=== PATIENT | male | born 1990 | race Caucasian/White ===

== ENCOUNTER 2019-07-24 01:25 | Emergency (ER) | payer SELFPAY ==
[~2019-07-24] VITALS: Ht 175.3 cm; Wt 89.4 kg
[~2019-07-24 01:25] MED LIST: CLIN150C2 PO
[2019-07-24 01:35] VITALS: BP 133/84
[2019-07-24] MEDS ORDERED: KETOROLAC 60 MG/2 ML VIAL IM STA (01:53)
[2019-07-24] MEDS ORDERED: AMOXICILLIN 500 MG (POLYMOX) CAP PO STA (01:53)
[2019-07-24] MEDS ORDERED: HYDROcodone/APAP 5 MG/325 MG (LORTAB) TAB PO ONE (02:00)
[2019-07-24] MEDS ORDERED: LIDOCAINE 2% VISCOUS 15 ML UDC PO ONE (02:00)
--- NOTE | 2019-07-24 02:04 | ED EENT ---
History of Present Illness General Chief Complaint: Dental Problems/Pain Stated Complaint: DENTAL PAIN Nursing Triage Note: left lower rear dental pain. reports breaking tooth friday. Source: patient Exam Limitations: no limitations History of Present Illness Date Seen by Provider: Jul 24, 2019 Time Seen by Provider: 01:44 Initial Comments Here with complaint of dental pain due to cracked tooth in the lower posterior left. Has poor dentition overall and knows he needs to get all his teeth pulled and get dentures but does not have insurance and can't afford to get it done right now. States that tooth broke few days ago. He has tried [id number] measures but he is unable to sleep due to severe pain. Has rather significant dental disease overall and every tooth is affected. Timing/Duration: other (2-3 days ago) Severity: moderate Location: mouth, dental Prearrival Treatment: over the counter meds Associated Symptoms: No cough, No drooling, No facial pain/swelling, No fever, No sore throat; tooth pain; No voice change Allergies and Home Medications Allergies Coded Allergies: levofloxacin (Verified Allergy, Unknown, 07/24/19) Home Medications No Active Prescriptions or Reported Meds Patient Home Medication List Home Medication List Reviewed: Yes Review of Systems Review of Systems Constitutional: no symptoms reported Eyes: No Symptoms Reported Ears: No Symptoms Reported Nose: no symptoms reported Mouth: see HPI, loose teeth, pain Throat: no symptoms reported Respiratory: no symptoms reported Cardiovascular: no symptoms reported Gastrointestinal: no symptoms reported Past Suvfrii-Kbjnry-Zlzizp Hx Past Med/Social Hx: Reviewed Nursing Past Med/Soc Hx Patient Social History Alcohol Use: Occasionally Uses Recreational Drug Use: Yes Drug of Choice: cannibus Smoking Status: Current Everyday Smoker Type Used: Cigarettes 2nd Hand Smoke Exposure: Yes Recent Foreign Travel: No Contact w/Someone Who Travel: No Recent Infectious Disease Expo: No Recent Hopitalizations: No Physical Abuse: No Sexual Abuse: No Mistreated: No Fear: No Immunizations Up To Date Tetanus Booster (TDap): Less than 5yrs Date of Influenza Vaccine: Dec 29, 2013 Seasonal Allergies Seasonal Allergies: No Past Medical History Surgeries: Yes (bmt) Adenoidectomy, Ear Surgery, Tonsillectomy Respiratory: No Cardiac: No Neurological: No Genitourinary: No Gastrointestinal: No Musculoskeletal: No Endocrine: No HEENT: No Cancer: No Psychosocial: No Integumentary: No Blood Disorders: No Family Medical History Reviewed Nursing Family Hx Patient reports no known family medical history. Physical Exam Vital Signs Vital Signs - First Documented 07/24/19 01:35 Temp 36.8 Pulse 64 Resp 16 B/P (MAP) 133/84 (100) Pulse Ox 98 O2 Delivery Room Air Height, Weight, BMI Height: 5'9.00" Weight: 184lbs. oz. 83.071954sj; 29.00 BMI Method:Stated General Appearance: WD/WN, no apparent distress Mouth/Throat: pharynx normal, other Neck: full range of motion, supple Cardiovascular: regular rate, rhythm, no murmur Respiratory: lungs clear, normal breath sounds Neurologic/Psychiatric: alert, oriented x 3 Progress/Results/Core Measures Results/Orders My Orders Orders - SAMANTHA ORTEGA MD Hydrocodone/Apap 5/325 Tablet (Lortab 5 (07/24/19 02:00) Ketorolac Injection (Toradol Injection) (07/24/19 01:53) Amoxicillin Capsule (Polymox Capsule) (07/24/19 01:53) Lidocaine 2% Viscous 15 Ml (Xylocaine Vi (07/24/19 02:00) Vital Signs/I&O 07/24/19 01:35 Temp 36.8 Pulse 64 Resp 16 B/P (MAP) 133/84 (100) Pulse Ox 98 O2 Delivery Room Air Blood Pressure Mean: 100 Progress Progress Note : Progress Note Seen and evaluated. Toradol 60 mg IM, hydrocodone 5 mg by mouth, amoxicillin 1 g by mouth and lidocaine topical mixture given. Counseled patient that he really needs to see a dentist because he's got significant dental disease. He verbalizes understanding. Discharged home with return precautions. Verbalize understanding instructions and agreement with plan. Departure Impression Primary Impression: Dental caries Disposition: 01 HOME, SELF-CARE Condition: Stable Departure-Patient Inst. Decision time for Depature: 02:09 Referrals: NO,LOCAL PHYSICIAN (PCP/Family) Primary Care Physician Patient Instructions: Fractured Tooth (DC), Tooth Decay, Adult (DC) Add. Discharge Instructions: All discharge instructions reviewed with patient and/or family. Voiced understanding. Continue to brush her teeth at least twice daily. You may rinse your mouth 2 or 3 times daily with saltwater solution by putting 1 teaspoon of salt in a couple of water. Swish and spit the solution. You may use the topical anesthetic by putting one gauze to area concern for several minutes and then discard. Try not to swallow saliva with the anesthetic as this will cause numbing. This is not dangerous but may be uncomfortable. You may take ibuprofen 800 mg every 8 hours as needed for pain. You may also take Tylenol/acetaminophen 1000 mg every 8 hours as needed for pain. It is very important that you follow up with a dentist [facility] as you have rather significant dental disease. Return for worse pain, fever, vomiting, weakness, breathing problems, swallowing problems or other concerns as needed. Take medications as directed. Scripts Amoxicillin (Amoxicillin) 500 Mg Capsule 500 MG PO TID, #21 CAP 0 Refills Prov: SAMANTHA ORTEGA MD 07/24/19 SAMANTHA ORTEGA MD Jul 24, 2019 02:04
[2019-07-24] MEDS ORDERED: AMOX500C2 PO (02:11)
== END 2019-07-24 02:20 | disposition home or self-care (01) ==
LOC: EDUNIT# 01:25 → ER 01:31
DX: K02.9 Dental caries, unspecified (principal); F17.210 Nicotine dependence, cigarettes, uncomplicated; Z88.1 Allergy status to other antibiotic agents
CPT/HCPCS: 99284